=== PATIENT | male | born 1950 | race Caucasian/White ===

== ENCOUNTER 2020-07-18 18:12 | Emergency (ER) | payer MEDICARE, OTHER ==
[2020-07-18 19:19] VITALS: BP 143/89; PULSE 99
--- NOTE | 2020-07-18 20:31 | EDM.PDOC ---
ED HPI GENERAL MEDICAL PROBLEM - General Chief Complaint: Skin Complaint Stated Complaint: L EAR PAIN/SKIN COMPLAINT Time Seen by Provider: 07/18/20 20:20 Source of Information: Reports: Patient History Limitations: Reports: No Limitations - History of Present Illness INITIAL COMMENTS - FREE TEXT/NARRATIVE: This is a 69-year-old male. He had skin cancer surgery on his left ear posteriorly and his left side of his neck and right side of his neck. He states that the wound on the posterior ear that he had a skin graft is painful but the other 2 areas are not. He thinks the one on his ear might be infected so he comes to the ER for evaluation. He denies any fever or chills he denies any other acute symptoms. He is due to go back this coming Monday to get his sutures removed. Left Ear Pain Score (Numeric/FACES): 7 - Related Data Allergies Allergy/AdvReac Type Severity Reaction Status Date / Time No Known Allergies Allergy Verified 09/04/15 21:46 Home Meds: Home Meds Diltiazem HCl [Diltiazem 24Hr Cd] 180 mg PO DAILY 12/19/14 [History] Multivitamin [Multi-Vitamin Daily] 1 tab PO DAILY 03/04/15 [History] atorvaSTATin Calcium [Atorvastatin Calcium] 40 mg PO DAILY 03/04/15 [History] Allopurinol [Zyloprim] 100 mg PO DAILY 07/18/20 [History] Aspirin [Halfprin] 81 mg PO DAILY 07/18/20 [History] Carbidopa/Levodopa [Carbidopa-Levo 25-100 MG ODT] 1 tab PO QID 07/18/20 [History] Dapagliflozin Propanediol [Farxiga] 10 mg PO DAILY 07/18/20 [History] Gabapentin [Neurontin] 600 mg PO BEDTIME 07/18/20 [History] Glimepiride 4 mg PO DAILY 07/18/20 [History] Losartan Potassium 50 mg PO DAILY 07/18/20 [History] Meloxicam 7.5 mg PO BID 07/18/20 [History] cephALEXin [Keflex] 500 mg PO Q8H #21 cap 07/18/20 [Rx] Past Medical History Other HEENT History: wears eye glasses Cardiovascular History: Reports: Hypertension Musculoskeletal History: Reports: Gout Endocrine/Metabolic History: Reports: Diabetes, Type II Other Endocrine/Metabolic History: Thyroid nodule with neg biopsy Dermatologic History: Reports: Other (See Below) Other Dermatologic History: skin cancer surgery with graft to left ear - Past Surgical History Musculoskeletal Surgical History: Reports: Hip Replacement Other Musculoskeletal Surgeries/Procedures:: x 2 Social & Family History - Tobacco Use Smoking Status *Q: Never Smoker - Caffeine Use Caffeine Use: Reports: Coffee, Soda - Recreational Drug Use Recreational Drug Use: No ED ROS GENERAL - Review of Systems Review Of Systems: See Below Constitutional: Denies: Fever, Chills HEENT: Reports: Other (As per HPI) Respiratory: Reports: No Symptoms Cardiovascular: Reports: No Symptoms Endocrine: Reports: No Symptoms GI/Abdominal: Reports: No Symptoms : Reports: No Symptoms Musculoskeletal: Reports: No Symptoms Skin: Reports: Other (As per HPI) Neurological: Reports: No Symptoms Psychiatric: Reports: No Symptoms ED EXAM, SKIN/RASH Exam: See Below Exam Limited By: No Limitations General Appearance: Alert, WD/WN, No Apparent Distress Eye Exam: Bilateral Eye: Normal Inspection Ears: Other (Posterior left ear have sutures as well as a gauze pack to the posterior left ear there is some erythema and some mild swelling noted but there is no obvious drainage there could be a mild cellulitis starting he does have a sutured the bridges between the outer ear and his scalp and if you pull on that suture of course is painful) Nose: Normal Inspection Throat/Mouth: Normal Lips, Normal Voice, No Airway Compromise Head: Normocephalic Neck: Supple, Other (Area of sutures on the left side of his neck and also the right side of his neck that appear to be good without inflammation or infection) Respiratory/Chest: No Respiratory Distress Back Exam: Full Range of Motion Extremities: Normal Inspection, Normal Range of Motion Neurological: Alert, Oriented Psychiatric: Normal Affect, Normal Mood Skin: Warm, Dry Course - Vital Signs Last Recorded V/S: Last Vital Signs Temp 99.0 F 07/18/20 19:17 Pulse 99 07/18/20 19:17 Resp 20 07/18/20 19:17 BP 143/89 H 07/18/20 19:17 Pulse Ox 95 07/18/20 19:17 Departure - Departure Time of Disposition: 20:30 Disposition: Home, Self-Care 01 Condition: Good Clinical Impression: Wound infection after surgery - Discharge Information *PRESCRIPTION DRUG MONITORING PROGRAM REVIEWED*: Not Applicable *COPY OF PRESCRIPTION DRUG MONITORING REPORT IN PATIENT MELANI: Not Applicable Prescriptions: cephALEXin [Keflex] 500 mg PO Q8H #21 cap Instructions: Wound Infection, [id number] Referrals: Katrin Leblanc MD [Primary Care Provider] - Additional Instructions: Start taking the antibiotics tonight when you get them from the pharmacy, do not be pulling or touching that left posterior ear area since the suture will cause pain if you pull on that ear, follow-up with the surgeon on Monday for recheck and suture removal, return to the ER if needed Sepsis Event Note (ED) - Evaluation Sepsis Screening Result: No Definite Risk - Focused Exam Vital Signs: Vital Signs Temp Pulse Resp BP Pulse Ox 07/18/20 19:17 99.0 F 99 20 143/89 H 95
== END 2020-07-18 20:40 | disposition home or self-care (01) ==
LOC: JD.ED 18:12
DX: T81.41XA Infection following a procedure, superficial incisional surgical site, initial encounter (principal); I10 Essential (primary) hypertension; M10.9 Gout, unspecified; E11.9 Type 2 diabetes mellitus without complications; Z98.890 Other specified postprocedural states; Z79.899 Other long term (current) drug therapy; Z79.82 Long term (current) use of aspirin; Z79.84 Long term (current) use of oral hypoglycemic drugs
CPT/HCPCS: 99282

== ENCOUNTER 2022-02-18 18:32 | Emergency (ER) | payer MEDICARE, OTHER ==
[2022-02-18 19:27] VITALS: BP 149/91; PULSE 55
== END 2022-02-18 21:50 | disposition home or self-care (01) ==
LOC: JD.ED 18:32
DX: R06.02 Shortness of breath (principal); R13.10 Dysphagia, unspecified; M10.9 Gout, unspecified; I10 Essential (primary) hypertension; E11.9 Type 2 diabetes mellitus without complications; Z79.82 Long term (current) use of aspirin; Z79.899 Other long term (current) drug therapy
CPT/HCPCS: 36415; 71045; 71045-26; 80053; 84484; 85025; 85379; 85610; 93005; 99285-25

== ENCOUNTER 2022-11-08 11:33 | Emergency (ER) | payer MEDICARE, OTHER ==
[2022-11-08] MEDS ORDERED: Sodium Chloride 0.9% 10 ML Syringe FLUSH PRN (12:01)
[2022-11-08] MEDS ORDERED: LORazepam 2 MG/ML SDV IVPUSH ONE (12:07)
[2022-11-08 12:57] LABS: ESTIMATED GFR 72 mL/min (>60)
[2022-11-08 13:06] LABS: CORONAVIRUS COVID-19 NAA NEGATIVE (NEGATIVE)
[2022-11-08 13:58] VITALS: BP 130/98; PULSE 66
== END 2022-11-08 13:55 | disposition home or self-care (01) ==
LOC: JD.ED 11:33
DX: R06.02 Shortness of breath (principal); F41.9 Anxiety disorder, unspecified; I10 Essential (primary) hypertension; M10.9 Gout, unspecified; E11.9 Type 2 diabetes mellitus without complications; Z88.8 Allergy status to other drugs, medicaments and biological substances; Z79.82 Long term (current) use of aspirin; Z79.899 Other long term (current) drug therapy; Z20.822 Contact with and (suspected) exposure to COVID-19
CPT/HCPCS: 0241U; 36415; 71046; 80053; 83880; 84484; 85025; 85379; 86140; 93005; 96374; 99285; J2060; J3490

== ENCOUNTER 2023-05-30 19:31 | Emergency (ER) | payer MEDICARE ==
[2023-05-30 19:42] VITALS: BP 145/83; PULSE 61
== END 2023-05-30 21:00 | disposition left against medical advice (07) ==
LOC: JD.ED 19:31
DX: Z53.21 Procedure and treatment not carried out due to patient leaving prior to being seen by health care provider (principal)

== ENCOUNTER 2024-10-09 07:00 | Day surgery (SDC) | payer MEDICARE ==
[~2024-10-09 07:00] MED LIST: Dexamethasone 4 MG/ML 5 ML MDV ONE; Ketorolac 30 MG/ML SDV ONE; Lidocaine 2% 5 ML SDV ONE; Midazolam 1 MG/ML 2 ML SDV ONE; Ondansetron 4 MG/2 ML SDV ONE; Propofol 200 MG/20 ML SDV ONE; Sodium Chloride 0.9% 10 ML Syringe FLUSH PRN; Sodium Chloride 0.9% 10 ML Syringe FLUSH SCH; ceFAZolin 2 GM Vial ONE; dexmedeTOMIDine HCl 200 MCG/2 ML SDV ONE; fentaNYL 100 MCG/2 ML SDV ONE
[2024-10-09] MEDS: Lactated Ringers 1,000 ML IV SCH (07:30)
[2024-10-09] MEDS: Acetaminophen 325 MG Tab PO SCH (07:58)
[2024-10-09] MEDS: Pregabalin 25 MG Cap PO SCH (07:58)
[2024-10-09] MEDS: oxyCODONE ER 10 MG TAB.ER PO SCH (07:59)
[2024-10-09] MEDS ORDERED: Ropivacaine 0.5% 5 MG/ML 30 ML SDV ONE (08:17)
[2024-10-09] MEDS ORDERED: Ondansetron 4 MG/2 ML SDV IVPUSH PRN (09:51)
[2024-10-09] MEDS ORDERED: fentaNYL 100 MCG/2 ML SDV IVPUSH PRN (09:51)
[2024-10-09] MEDS ORDERED: HYDROmorphone 0.5 MG/0.5 ML Syringe IVPUSH PRN (09:51)
[2024-10-09] MEDS: Morphine 8 MG, EPINEPHrine 0.3 MG, Cefuroxime 750 MG, Ketorolac 30 MG, Sodium Chloride ... PRN (10:14)
[2024-10-09] MEDS: VANCOmycin 1 GM SDV ONE (10:19)
[2024-10-09] MEDS: Tranexamic Acid 1,000 MG/10 ML Vial ONE (10:19)
[2024-10-09] MEDS: oxyCODONE 5 MG Tab PO PRN (11:47)
[2024-10-09 18:04] VITALS: BP 114/78; PULSE 88
== END 2024-10-09 15:13 | disposition home or self-care (01) ==
LOC: JD.SDS 07:00
PROVIDERS: ATTEND Orthopaedic Surgery
DX: M17.11 Unilateral primary osteoarthritis, right knee (principal); E11.40 Type 2 diabetes mellitus with diabetic neuropathy, unspecified; I10 Essential (primary) hypertension; F41.9 Anxiety disorder, unspecified; G20.A1 Parkinson's disease without dyskinesia, without mention of fluctuations; E55.9 Vitamin D deficiency, unspecified; E78.2 Mixed hyperlipidemia; Z79.84 Long term (current) use of oral hypoglycemic drugs; Z79.899 Other long term (current) drug therapy; Z88.8 Allergy status to other drugs, medicaments and biological substances
CPT/HCPCS: 0055T; 27447; 64447; 73560; 82947; 97116; 97161; A9270; J0171; J0690; J0697; J1100; J1885; J2250; J2272; J2405; J2704; J2795; J3490; J7120; J3010

== ENCOUNTER 2024-10-12 12:05 | Emergency (ER) | payer MEDICARE ==
[2024-10-12] MEDS: Ondansetron 4 MG Tab.DIS PO ONE (13:14)
[2024-10-12] MEDS: Acetaminophen/HYDROcodone 325-5 MG Tab PO ONE (13:14)
[2024-10-12] MEDS ORDERED: Sodium Chloride 0.9% 100 ML IV SCH (13:45)
[2024-10-12] MEDS: Iopamidol 755 Mg/ML 100 ML Bottle IVPUSH ONE (14:07)
[2024-10-12 19:23] VITALS: BP 151/93; PULSE 75
== END 2024-10-12 17:39 | disposition home or self-care (01) ==
LOC: JD.ED 12:05
DX: S80.11XA Contusion of right lower leg, initial encounter (principal); G89.28 Other chronic postprocedural pain; M25.561 Pain in right knee; Z91.81 History of falling; Z79.01 Long term (current) use of anticoagulants; I10 Essential (primary) hypertension; E11.9 Type 2 diabetes mellitus without complications; Z88.8 Allergy status to other drugs, medicaments and biological substances; Z79.899 Other long term (current) drug therapy; Y93.01 Activity, walking, marching and hiking; X58.XXXA Exposure to other specified factors, initial encounter
CPT/HCPCS: 73590; 73610; 73630; 75635; 93971; 99284; A9270; Q9967